=== PATIENT | female | born 1995 | race Caucasian/White ===

== ENCOUNTER 2019-04-06 13:59 | Emergency (ER) | payer BC ==
--- NOTE | 2019-04-06 14:45 | ED ---
Abdominal Pain/Female - HPI Summary HPI Summary: This patient is a 23 year old F presenting to [facility] with a chief complaint of constant suprapubic/L sided abdominal "numb"/dull pain since 3-4 days ago. Symptoms aggravated by sitting. Symptoms alleviated by walking. Pt reports pain randomly sharpens especially when she is sitting down described like the left side is pushing up but the pain dulls when she is walking and is not noticeable then. Pt reports this morning she had cramping. Denies vaginal bleeding, discharge, dysuria. Pt reports last menstrual period was almost 1 month ago. Went to [facility] and referred to [facility] for US. FMHx ovarian cancer ( mother diagnosed when 21 y), diabetes. - History of Current Complaint Chief Complaint: EDAbdPain Stated Complaint: LEFT LOWER QUADRANT PAIN Time Seen by Provider: 04/06/19 14:33 Hx Obtained From: Patient Onset/Duration: Lasting Days, Still Present Timing: Constant Pain Intensity: 2 Pain Scale Used: 0-10 Numeric Location: Suprapubic Character: Sharp, Dull Aggravating Factor(s): Other: - sitting Alleviating Factor(s): Other: - walking Associated Signs and Symptoms: Positive: Other: - cramping; denies dysuria. Negative: Vaginal Bleeding, Vaginal Discharge Allergies/Adverse Reactions: Allergies Allergy/AdvReac Type Severity Reaction Status Date / Time Penicillins Allergy Nausea And Verified 04/06/19 14:13 Vomiting Sulfa (Sulfonamide Allergy Rash Verified 04/06/19 14:13 Antibiotics) PMH/Surg Hx/FS Hx/Imm Hx Endocrine/Hematology History: Denies: Hx Diabetes Cardiovascular History: Denies: Hx Hypertension Sensory History: Reports: Hx Contacts or Glasses Opthamlomology History: Reports: Hx Contacts or Glasses Psychiatric History: Reports: Hx Depression - Surgical History Surgery Procedure, Year, and Place: benign mass removal on neck and back Infectious Disease History: No Infectious Disease History: Denies: Traveled Outside the [place] in Last 30 Days - Family History Known Family History: Positive: Diabetes, Other - ovarian cancer - Social History Alcohol Use: None Hx Substance Use: No Substance Use Type: Reports: None Hx Tobacco Use: No Smoking Status (MU): Never Smoked Tobacco Review of Systems Positive: Abdominal Pain, Other - crampin Positive: other - denies vaginal bleeding, vaginal discharge. Negative: dysuria All Other Systems Reviewed And Are Negative: Yes Physical Exam - Summary Physical Exam Summary: Constitutional: Well-developed, Well-nourished, Alert. (-) Distressed Skin: Warm, Dry HENT: Normocephalic; Atraumatic Eyes: Conjunctiva normal Neck: Musculoskeletal ROM normal neck. (-) JVD, (-) Stridor, (-) Nuchal rigidity Cardio: Rhythm regular, rate normal, Heart sounds normal; Intact distal pulses; Radial pulses are 2+ and symmetric. (-) Murmur Pulmonary/Chest wall: Effort normal. (-) Respiratory distress, (-) Wheezes, (-) Rales Abd: mild left lower quadrant tenderness, (-) Distension, (-) Guarding, (-) Rebound Musculoskeletal: (-) Edema Neuro: Alert, Oriented x3 Psych: Mood and affect Normal Triage Information Reviewed: Yes Vital Signs On Initial Exam: Initial Vitals Temp Pulse Resp BP Pulse Ox 99.2 F 56 14 121/67 98 04/06/19 14:10 04/06/19 14:10 04/06/19 14:10 04/06/19 14:10 04/06/19 14:10 Vital Signs Reviewed: Yes Procedures - Sedation Patient Received Moderate/Deep Sedation with Procedure: No Diagnostics - Vital Signs Vital Signs Temp Pulse Resp BP Pulse Ox 04/06/19 14:10 99.2 F 56 14 121/67 98 - Laboratory Result Diagrams: 04/06/19 14:56 04/06/19 14:56 Lab Statement: Any lab studies that have been ordered have been reviewed, and results considered in the medical decision making process. - Ultrasound Pelvis US Ultrasound Interpretation Completed By: Radiologist Summary of Ultrasound Findings: Per radiologist,. 1. 6.1 CM HEMORRHAGIC CYST OF THE LEFT OVARY. 2. NO SONOGRAPHIC FEATURES OF TORSION. PLEASE NOTE THAT PARTIAL OR INTERMITTENT TORSION. MAY BE SONOGRAPHICALLY NORMAL. ED physician has reviewed this imaging report. Re-Evaluation - Re-Evaluation First Eval Re-Evaluation Time: 16:38 Comment: Discussed the patient's findings of hemorrhagic cyst of the left ovary , plan for [facility] follow-up and likely repeat ultrasound if pain persists. Also discussed return precautions. Hemoglobin stable. Patient well-appearing abdomen soft on re-eval. Abdominal Pain Fem Course/Dx - Course Course Of Treatment: 23-year-old female presents with left lower quadrant abdominal pain. DDx includes ovarian cyst, ectopic, PID, less likely ovarian torsion, fibroids. Exam relatively unremarkable today, no rigidity or suggestions of acute surgical abd. Check transvaginal ultrasound. Serum to r/o ectopic. Less likely ovarian torsion given mild pain symptoms. Pt denies vaginal discharge, also with no fever, so less likely PID. Will obtain UA to assess for UTI. - Diagnoses Provider Diagnoses: Hemorrhagic cyst of left ovary Discharge ED - Sign-Out/Discharge Documenting (check all that apply): Patient Departure - discharge - Discharge Plan Condition: Stable Disposition: HOME Patient Education Materials: Ovarian Cyst (ED) Referrals: Lavonne Iqbal MD [Primary Care Provider] - 3 Days Additional Instructions: You were seen in the emergency department for left lower quadrant pain. Your ultrasound showed a hemorrhagic cyst approximately 6 cm in your left ovary. This can be normal however if you have continued pain, worsening pain, or if you 're concerned please return to the ED. Please call [facility] regarding this as you may require a repeat ultrasound in the future. Please follow up with your primary care doctor in next 2-3 days and return to emergency department for worsening or concerning symptoms. It was a pleasure taking care of you today. - Billing Disposition and Condition Condition: STABLE Disposition: Home - Attestation Statements Document Initiated by Kaylynn: Yes Documenting Scribe: Linda Hernández Provider For Whom Kaylynn is Documenting (Include Credential): Dr. Lurdes Lino MD Scribe Attestation: Linda Krishnamurthy scribed for Dr. Lurdes Lino MD on 04/07/19 at 0717. Scribe Documentation Reviewed: Yes Provider Attestation: The documentation as recorded by the Linda short accurately reflects the service I personally performed and the decisions made by me, Dr. Lurdes Lino MD Status of Scribvinay Document: Viewed
[2019-04-06 15:03] LABS: ABS Monocytes 0.5 10^3/ul (0-0.8); ABS Neutrophils 4.1 10^3/ul (1.5-7.7); Eosinophil % 0.5 %; Hematocrit 38 % (35-47); Hemoglobin 12.6 g/dL (12.0-16.0); Lymphocyte % 29.5 %; Mean Corpuscular HGB Conc 33 g/dL (31-36); Mean Corpuscular Hemoglobin 29 pg (27-31); Mean Corpuscular Volume 87 fL (80-97); Mean Platelet Volume 8.4 fL (7.4-10.4); Nucleated Red Blood Cells % 0.1; Platelet Count 248 10^3/uL (150-450); Red Blood Count 4.32 10^6 /uL (3.70-4.87); Red Cell Distribution Width 13 % (10-15); White Blood Count 6.6 10^3/uL (3.5-10.8)
[2019-04-06 15:24] LABS: ALT 9 U/L (7-52); AST 14 U/L (13-39); Albumin 4.2 g/dL (3.2-5.2); Albumin/Globulin Ratio 1.3 (1-3); Alkaline Phosphatase 46 U/L (34-104); Anion Gap 5 mmol/L (2-11); BUN/Creatinine Ratio 19.4 (8-20); Blood Urea Nitrogen 12 mg/dL (6-24); CO2 Carbon Dioxide 28 mmol/L (22-32); Calcium 9.6 mg/dL (8.6-10.3); Chloride 104 mmol/L (101-111); EGFR Non-African American 121.5 (>60); Globulin 3.2 g/dL (2-4); Glucose 87 mg/dL (70-100); Potassium 3.6 mmol/L (3.5-5.0); Sodium 137 mmol/L (135-145); Total Protein 7.4 g/dL (6.4-8.9)
[2019-04-06 15:30] LABS: HCG Pregnancy < 0.60 mIU/mL
[2019-04-06 15:34] LABS: Urine Appearance Clear; Urine Bilirubin Negative (Negative); Urine Blood Negative (Negative); Urine Color Straw; Urine Glucose Negative (Negative); Urine Ketones Negative (Negative); Urine Nitrite Negative (Negative); Urine Protein Negative (Negative); Urine Specific Gravity 1.009 (1.010-1.030); Urine Urobilinogen Negative (Negative)
[2019-04-06 16:56] VITALS: BP 123/67
== END 2019-04-06 16:55 | disposition home or self-care (01) ==
LOC: ED 13:59
DX: N83.202 Unspecified ovarian cyst, left side (principal); F32.9 Major depressive disorder, single episode, unspecified; Z88.0 Allergy status to penicillin; Z88.2 Allergy status to sulfonamides
CPT/HCPCS: 36415; 76856; 80053; 81003; 84702; 85025; 99283

== ENCOUNTER 2021-09-15 17:44 | Inpatient (IN) ==
[2021-09-15] MEDS ORDERED: Buffered Lidocaine 1% SYRIN 1 ml INTRADERM ONE (18:31)
[2021-09-15] MEDS ORDERED: Lactated Ringers 1000 ml BAG 1,000 ML IV ONE (18:31)
[2021-09-15] MEDS ORDERED: Dinoprostone 10 MG VAG.SUPP VAGINAL ONE (18:31)
[2021-09-15 18:47] LABS: Urine Appearance Cloudy; Urine Bilirubin Negative (Negative); Urine Blood Negative (Negative); Urine Color Yellow; Urine Glucose Negative (Negative); Urine Ketones Negative (Negative); Urine Nitrite Negative (Negative); Urine Protein Negative (Negative); Urine Specific Gravity 1.011 (1.002-1.030); Urine Urobilinogen Negative (Negative)
[2021-09-15 19:02] LABS: Urine Benzodiazepine Screen None Detected (None Detect); Urine Cannabinoids Screen None Detected (None Detect); Urine Opiates Screen None Detected (None Detect)
[2021-09-16] MEDS ORDERED: Dinoprostone 10 MG VAG.SUPP VAGINAL ONE (19:38)
[2021-09-17 15:50] LABS: ABS Eosinophils 0.1 10^3/ul (0-0.6); ABS Neutrophils 7.3 10^3/ul (1.5-7.7); Eosinophil % 1.1 %; Hematocrit 34 % (35-47); Hemoglobin 11.9 g/dL (12.0-16.0); Lymphocyte % 18.9 %; Mean Corpuscular HGB Conc 35 g/dL (31-36); Mean Corpuscular Hemoglobin 30 pg (27-31); Mean Corpuscular Volume 87 fL (80-97); Mean Platelet Volume 9.2 fL (7.4-10.4); Nucleated Red Blood Cells % 0.1; Platelet Count 226 10^3/uL (150-450); Red Blood Count 3.93 10^6 /uL (3.70-4.87); Red Cell Distribution Width 13 % (10-15); White Blood Count 10.3 10^3/uL (3.5-10.8)
[2021-09-17] MEDS ORDERED: Oxytocin in LR 20 UNITS/1,000 ML BAG IVPB SCH (16:00)
[2021-09-17 16:22] LABS: Albumin 3.4 g/dL (3.2-5.2); Albumin/Globulin Ratio 1.2 (1-3); Calcium 9.5 mg/dL (8.6-10.3); Globulin 2.9 g/dL (2-4); Total Bilirubin 0.6 mg/dL (0.2-1.0); Total Protein 6.3 g/dL (6.4-8.9); Uric Acid 4.3 mg/dL (2.3-6.6); eGFR CKD-EPI 136.4 (>60)
[2021-09-17] MEDS: Lactated Ringers 1000 ml BAG 1,000 ML IV SCH (16:45)
[2021-09-18] MEDS ORDERED: OBEPIDURAL (200 ML) 200 ML EPIDURAL ONE (00:19)
[2021-09-18] MEDS ORDERED: Lidocaine 1.5% EPI 1:200,000 30 ML SDV ONE (00:34)
[2021-09-18] MEDS ORDERED: Lidocaine 2% w/ EPI 1:200,000 MPF 20 ML SDV VIAL ONE (01:10)
[2021-09-18] MEDS ORDERED: Sodium Citrate/Citric Acid LIQ 15 ML UDC PO PRN (01:23)
[2021-09-18] MEDS ORDERED: Lactated Ringers 1000 ml BAG 1,000 ML IV ONE (01:23)
[2021-09-18] MEDS ORDERED: Phenylephrine 40 mcg/mL 10mL (400mcg) SYRINGE IV PUSH PRN ×2 (01:23)
[2021-09-18] MEDS ORDERED: Lactated Ringers 1000 ml BAG 500 ML IV PRN ×2 (01:23)
[2021-09-18] MEDS ORDERED: OBEPIDURAL (200 ML) 200 ML EPIDURAL SCH (02:00)
[2021-09-18] MEDS ORDERED: Lactated Ringers 1000 ml BAG 1,000 ML IV SCH ×3 (02:00→21:00)
[2021-09-18] MEDS ORDERED: fentaNYL 100 mcg/2 ml 50 MCG/ML VIAL ONE (12:19)
[2021-09-18] MEDS ORDERED: Bupivacaine 0.25% SDV PF 10 ML VIAL INJ ONE (12:19)
[2021-09-18] MEDS ORDERED: Sterile Water for Inj 10 ML ONE (12:20)
[2021-09-18] MEDS: Lactated Ringers 1000 ml BAG 1,000 ML IV SCH (12:25)
[2021-09-18] MEDS ORDERED: ceFOXitin 2 GM IVPREMIX 2 GM/50 ML BAG ONE (17:47)
[2021-09-18] MEDS ORDERED: Oxytocin 10 UNITS/ML 1 ML VIAL ONE (18:28)
[2021-09-18] MEDS ORDERED: Phenylephrine 40 mcg/mL 10mL (400mcg) SYRINGE ONE (18:28)
[2021-09-18] MEDS ORDERED: Morphine PF AMP (0.5MG/ML) 5 MG/10 ML AMP ONE (18:28)
[2021-09-18] MEDS ORDERED: Ondansetron 4 mg VIAL 2 MG/ML 2 ml VIAL ONE (19:08)
[2021-09-18] MEDS ORDERED: Ondansetron 4 mg VIAL 2 MG/ML 2 ml VIAL IV PRN ×2 (20:03→20:04)
[2021-09-18] MEDS ORDERED: Dibucaine 1% OINT 28.35 GM TUBE PR PRN (20:03)
[2021-09-18] MEDS ORDERED: Glycerin ADULT 2.4 gm SUPP PR PRN (20:03)
[2021-09-18] MEDS ORDERED: Naloxone 0.4 mg VIAL 0.4 mg/ml 1 ml VIAL IV PRN ×2 (20:03→20:04)
[2021-09-18] MEDS ORDERED: fentaNYL 100 mcg/2 ml 50 MCG/ML VIAL IV PRN (20:03)
[2021-09-18] MEDS ORDERED: Witch Hazel PAD JAR TOPICAL PRN (20:03)
[2021-09-18] MEDS ORDERED: oxyCODONE/Acetamin 5/325 mg TAB PO PRN (20:04)
[2021-09-18] MEDS ORDERED: Scopolamine 1 mg/72hr PATCH TRANSDERM PRN (20:04)
[2021-09-18] MEDS ORDERED: DiMENhydriNATE IV 50 mg/ml 1 ml VIAL IV PUSH PRN (20:04)
[2021-09-18] MEDS ORDERED: diPHENhydraMINE IV 50 MG/ML 1 ml VIAL (BENADRYL) IV PRN (20:04)
[2021-09-18] MEDS ORDERED: Oxytocin in LR 20 UNITS/1,000 ML BAG IVPB SCH (21:00)
[2021-09-18] MEDS: oxyCODONE/Acetamin 5/325 mg TAB PO PRN (21:29)
[2021-09-19] MEDS: oxyCODONE/Acetamin 5/325 mg TAB PO PRN ×2 (05:50→10:25)
[2021-09-19 06:45] LABS: Hematocrit 29 % (35-47); Hemoglobin 9.8 g/dL (12.0-16.0); Mean Corpuscular HGB Conc 34 g/dL (31-36); Mean Corpuscular Hemoglobin 30 pg (27-31); Mean Corpuscular Volume 88 fL (80-97); Platelet Count 174 10^3/uL (150-450); Red Blood Count 3.29 10^6 /uL (3.70-4.87); Red Cell Distribution Width 14 % (10-15); White Blood Count 18.5 10^3/uL (3.5-10.8)
[2021-09-19 08:39] LABS: ABS Eosinophils 0.1 10^3/ul (0-0.6); ABS Lymphocytes 1.8 10^3/ul (1.0-4.8); ABS Monocytes 1.8 10^3/ul (0-0.8); ABS Neutrophils 14.9 10^3/ul (1.5-7.7); Eosinophil % 0.5 %; Lymphocyte % 9.5 %
[2021-09-21 07:56] VITALS: BP 127/64
== END 2021-09-21 14:33 | disposition home or self-care (01) | DRG 540 ==
LOC: MCHOBOUT 17:44 → MCHOB 18:47
PROVIDERS: ADMIT Midwife; ATTEND Obstetrics & Gynecology